=== PATIENT | male | born 1975 | race Caucasian/White ===

== ENCOUNTER 2025-07-03 23:39 | Emergency (ER) | payer OTHER ==
[~2025-07-03] VITALS: Ht 193 cm; Wt 136.4 kg
[2025-07-04 00:19] LABS: PLATELET COUNT (AUTO) 186 K/uL (150-450); RED BLOOD CELL COUNT(AUTO) 4.25 MIL/uL (4.50-5.90); RED CELL DISTRIBUTION WIDTH 14.5 % (11.5-14.5); WHITE BLOOD COUNT (AUTO) 6.9 K/uL (4.5-11.0)
[2025-07-04 00:25] LABS: CALCIUM, TOTAL 8.8 mg/dL (8.8-10.5); CREATININE 0.78 mg/dL (0.60-1.30); GLOMERULAR FILTR. RATE CALC > 60 mL/min (>60); GLUCOSE,RANDOM 109 mg/dL (70-110); SODIUM SERUM 139 mmol/L (136-145); UREA NITROGEN, BLOOD 15 mg/dL (7-18)
[2025-07-04] MEDS ORDERED: BENZ-227 PO (02:06)
[2025-07-04] MEDS ORDERED: LIDO-57 TP (02:06)
[2025-07-04 02:30] VITALS: BP 133/75; PULSE 74; RESP 12; TEMP 97.3; O2SAT 98
[2025-07-04] MEDS: LIDOCAINE 5% TRANSDERMAL PATCH TD ONE (02:41)
== END 2025-07-04 02:30 | disposition home or self-care (01) ==
LOC: EMS 23:56
DX: M54.50 Low back pain, unspecified (principal); F12.90 Cannabis use, unspecified, uncomplicated; F31.9 Bipolar disorder, unspecified; F17.210 Nicotine dependence, cigarettes, uncomplicated
CPT/HCPCS: 80048; 85025; 99283